=== PATIENT | female | born 1955 | race Two or more races ===

== ENCOUNTER 2016-11-22 23:19 | Emergency (ER) | payer MEDICAID ==
[~2016-11-22] VITALS: Ht 170.2 cm; Wt 119.7 kg
[2016-11-22 23:20] VITALS: BP 149/74
[2016-11-23 00:27] LABS: Basophils # (auto) 0 uL; Basophils % (auto) 0.4 % (0.0-2.0); Eosinophils # (auto) 0.2 uL; Eosinophils % (auto) 2.4 % (0.0-7.0); Lymphocytes # (auto) 1.3 uL; Lymphocytes % (auto) 18.8 % (10.0-50.0); Mean Corpuscular Hemoglobin 29.8 pg (28.0-32.0); Mean Corpuscular Hgb Conc. 33.3 g/dL (32.0-36.0); Mean Corpuscular Volume 89.6 fL (80.0-100.0); Mean Platelet Volume 8.1 fL (7.4-10.4); Monocytes # (auto) 0.5 uL; Monocytes % (auto) 6.4 % (0.0-12.0); Neutrophils # (auto) 5.1 uL; Platelet Count (auto) 204 10^3/uL (140-450); Red Cell Distribution Width 11.9 % (11.6-16.0); White Blood Cell 7.1 10^3/uL (4.4-10.8)
[2016-11-23 00:46] LABS: INR 1.01 (0.9-1.15); Partial Thromboplastin Time 26.5 sec (22.64-33.71)
[2016-11-23 01:03] LABS: Albumin 3.3 g/dL (3.4-5.0); Amylase 95 U/L (25-115); Anion Gap 9 (5-15); Aspartate Aminotransferase 22 U/L (15-37); BUN/Creatinine Ratio 20.5; Blood Urea Nitrogen 15 mg/dL (7-18); Calcium 8.1 mg/dL (8.5-10.1); Carbon Dioxide 27 mmol/L (21-32); Chloride 107 mmol/L (98-107); GFR African American 104 mL/min; GFR Non-African American 86 mL/min; Glucose 133 mg/dL (74-106); Magnesium 2.1 mg/dL (1.6-2.6); Potassium 4.1 mmol/L (3.5-5.1); Sodium 143 mmol/L (136-145)
[2016-11-23 01:09] LABS: Alkaline Phosphatase 75 U/L (45-117); Bilirubin, Total 0.6 mg/dL (0.2-1.0); Total Protein 7.1 g/dL (6.4-8.2)
[2016-11-23 05:56] LABS: Urine Bilirubin Negative (Negative); Urine Blood Negative /uL (Negative); Urine Color Yellow (Yellow); Urine Glucose Normal (Normal); Urine Ketone Negative (Negative); Urine Mucus FEW (None Seen); Urine Nitrite Negative (Negative); Urine RBC <1 /hpf (0 - 4); Urine Squamous Epithelial Cell MOD /hpf (<5); Urine Urobilinogen Normal (Negative); Urine pH 5.5 (5.0-8.0)
== END 2016-11-23 02:49 | disposition left against medical advice (07) ==
LOC: ER 23:22 → EDBD 23:22 → ER 11-23 02:45
DX: R10.84 Generalized abdominal pain (principal); R19.7 Diarrhea, unspecified; Z53.21 Procedure and treatment not carried out due to patient leaving prior to being seen by health care provider
CPT/HCPCS: 36415; 80053; 81001; 82150; 83690; 83735; 84484; 85025; 85610; 85730; 93005